=== PATIENT | female | born 1960 | race Caucasian/White ===

== ENCOUNTER 2017-07-06 06:43 | Day surgery (SDC) | payer MEDICAID ==
[~2017-07-06] VITALS: Ht 152.4 cm; Wt 63.5 kg
[2017-07-06] MEDS ORDERED: HYALURONATE SODIUM 14 MG/ML 0.85ML SYRINGE IO ONE ×2 (07:11→10:21)
[2017-07-06] MEDS ORDERED: CYCLOPENTOLATE HCL 1% OPHTH DROPS 2ML RIGHTEYE ONE (07:50)
[2017-07-06] MEDS ORDERED: PHENYLEPHRINE HCL 10% OPHTH DROPS 5ML RIGHTEYE ONE (07:50)
[2017-07-06] MEDS ORDERED: TROPICAMIDE 1% OPHTH DROPS 15ML RIGHTEYE ONE (07:50)
[2017-07-06] MEDS: LACTATED RINGERS 1,000 ML IV SCH ×2 (08:45→08:50)
[2017-07-06 11:33] LABS: BASOPHILS % 1.1 % (0.0-2.0); EOSINOPHILS % 4.8 % (0.0-5.0); HEMATOCRIT. 37.2 % (36.0-48.0); HEMOGLOBIN. 12.7 g/dL (12.0-16.0); LYMPHOCYTES % 30.4 % (20.0-50.0); MEAN CORPUSCULAR HEMOGLOBIN 30.7 pg (28.0-32.0); MEAN PLATELET VOLUME 7.7 fl (7.4-10.4); NEUTROPHILS % 54.7 % (40.0-76.0); PLATELET 271 x1000/uL (130-400); RED BLOOD CELL COUNT 4.14 mill/uL (4.2-5.4); RED CELL DISTRIBUTION WIDTH 13.9 % (11.6-14.6)
[2017-07-06] MEDS ORDERED: FENTANYL CITRATE/PF 50MCG/ML 2ML VIAL ONE (12:46)
[2017-07-06] MEDS ORDERED: MIDAZOLAM HCL 2 MG/2 ML VIAL ONE (12:46)
[2017-07-06] MEDS ORDERED: PROPOFOL 200MG/20ML VIAL IV ONE (12:46)
[2017-07-06] MEDS ORDERED: ACET-2178 PO (12:53)
[2017-07-06] MEDS ORDERED: AMLO2.5T45 PO (12:53)
[2017-07-06] MEDS ORDERED: FLUO40CA49 PO (12:53)
[2017-07-06] MEDS ORDERED: GABA-531 PO (12:53)
[2017-07-06] MEDS ORDERED: NORT25CA PO (12:53)
[2017-07-06] MEDS ORDERED: TOLT4CAP PO (12:53)
[2017-07-06] MEDS ORDERED: MELO-106 PO (12:53)
[2017-07-06] MEDS ORDERED: HYDR-3735 GT (12:53)
[2017-07-06] MEDS ORDERED: OMEP20CA10 PO (12:53)
[2017-07-06] MEDS ORDERED: LATA2.5D2 EACHEYE (12:53)
[2017-07-06] MEDS ORDERED: ALBU18HF2 IH (12:53)
[2017-07-06] MEDS ORDERED: PROP80CA2 PO (12:53)
[2017-07-06] MEDS ORDERED: PRAV40TA58 PO (12:53)
[2017-07-06] MEDS ORDERED: ESTR0.3T3 PO (12:53)
[2017-07-06] MEDS ORDERED: TIOT18CA3 IH (12:53)
[2017-07-06] MEDS ORDERED: VARE1TAB21 PO (12:53)
[2017-07-06] MEDS ORDERED: SODIUM CHLORIDE 0.9% 1,000 ML IV SCH (13:30)
[2017-07-06] MEDS ORDERED: MORPHINE SULFATE 2 MG/ML CPJ (NOT FOR IM USE) IV PRN (13:30)
[2017-07-06] MEDS ORDERED: ONDANSETRON HCL 4MG/2ML VIAL IV PRN (13:30)
[2017-07-06] MEDS ORDERED: EPINEPHRINE 1:1000 1 MG/ML AMP ONE (13:47)
[2017-07-06] MEDS ORDERED: BALANCED SALT IRRIG SOLN 15ML ONE (14:26)
[2017-07-06] MEDS ORDERED: TETRACAINE 0.5% OPHTH DROPS 4ML ONE (14:26)
[2017-07-06] MEDS ORDERED: LIDOCAINE HCL/PF 2% 20 MG/ML 10ML VIAL ONE (14:26)
[2017-07-06] MEDS ORDERED: CIPROFLOXACIN 0.3% OPHTH SOLN 2.5ML ONE (14:26)
[2017-07-06] MEDS ORDERED: PREDNISOLONE ACETATE 1% OPHTH DROPS 1ML ONE (14:26)
[2017-07-06] MEDS ORDERED: LIDOCAINE HCL 2%/EPINEPHRINE 1:100,000 20 ML VIAL INFIL ONE (14:26)
[2017-07-06] MEDS ORDERED: ACETYLCHOLINE CHLORIDE INTRAOCULAR SOLUTION 1:100 ELECTROLYTE DILUENT IO ONE (14:26)
[2017-07-06] MEDS ORDERED: BUPIVACAINE HCL/PF 0.75% (7.5MG/ML) 10ML ONE (14:26)
[2017-07-06] MEDS ORDERED: NEO/POLYMYX B SULF/DEXAMETH OPHTH OINT 3.5GM ONE (14:26)
== END 2017-07-06 15:15 | disposition home or self-care (01) ==
LOC: OR 06:43
PROVIDERS: ATTEND Ophthalmology
DX: H25.9 Unspecified age-related cataract (principal); H57.03 Miosis; J43.9 Emphysema, unspecified; K21.9 Gastro-esophageal reflux disease without esophagitis; I10 Essential (primary) hypertension; E66.3 Overweight; F17.210 Nicotine dependence, cigarettes, uncomplicated; E78.5 Hyperlipidemia, unspecified
CPT/HCPCS: 36415; 66982; 67010; 84132; 85025; J0171; J2250; J3010; J3490; J7120; V2632; J2704

== ENCOUNTER 2017-08-17 06:56 | Day surgery (SDC) | payer MEDICAID ==
[~2017-08-17] VITALS: Ht 152.4 cm; Wt 63.5 kg
[~2017-08-17 06:56] MED LIST: ACET-2178 PO; ALBU18HF2 IH; AMLO2.5T45 PO; ESTR0.3T3 PO; FLUO40CA49 PO; GABA-531 PO; HYDR-3735 GT; LATA2.5D2 EACHEYE; MELO-106 PO; NORT25CA PO; OMEP20CA10 PO; PRAV40TA58 PO; PROP80CA2 PO; TIOT18CA3 IH; TOLT4CAP PO; VARE1TAB21 PO
[2017-08-17] MEDS ORDERED: BALANCED SALT IRRIG SOLN COMB1 500ML OP ONE (07:45)
[2017-08-17] MEDS ORDERED: PHENYLEPHRINE HCL 10% OPHTH DROPS 5ML RIGHTEYE ONE (07:55)
[2017-08-17] MEDS ORDERED: TROPICAMIDE 1% OPHTH DROPS 15ML RIGHTEYE ONE (07:55)
[2017-08-17] MEDS ORDERED: CYCLOPENTOLATE HCL 1% OPHTH DROPS 2ML RIGHTEYE ONE (07:55)
[2017-08-17] MEDS ORDERED: LACTATED RINGERS 1,000 ML IV SCH (08:00)
[2017-08-17] MEDS ORDERED: HYALURONATE SODIUM 14 MG/ML 0.85ML SYRINGE IO ONE (08:40)
[2017-08-17] MEDS ORDERED: PROPOFOL 200MG/20ML VIAL IV ONE ×2 (10:30→10:55)
[2017-08-17] MEDS ORDERED: LIDOCAINE HCL 1% 20ML VIAL (Pyxis) INJ ONE (10:32)
[2017-08-17] MEDS ORDERED: ONDANSETRON HCL 4MG/2ML VIAL IV PRN (10:45)
[2017-08-17] MEDS ORDERED: MEPERIDINE HCL/PF 25MG/ML CPJ IV PRN (10:45)
[2017-08-17] MEDS ORDERED: LABETALOL HCL 20MG/4ML CARPUJECT IV PRN (10:45)
[2017-08-17] MEDS ORDERED: EPINEPHRINE 1:1000 1 MG/ML AMP ONE (11:04)
[2017-08-17] MEDS ORDERED: DEXAMETHASONE 4MG/ML 1ML VIAL ONE (11:20)
[2017-08-17] MEDS ORDERED: LIDOCAINE HCL 2%/EPINEPHRINE 1:100,000 20 ML VIAL INFIL ONE (12:16)
[2017-08-17] MEDS ORDERED: NEO/POLYMYX B SULF/DEXAMETH OPHTH OINT 3.5GM ONE (12:16)
[2017-08-17] MEDS ORDERED: TETRACAINE 0.5% OPHTH DROPS 4ML ONE (12:16)
[2017-08-17] MEDS ORDERED: ACETYLCHOLINE CHLORIDE INTRAOCULAR SOLUTION 1:100 ELECTROLYTE DILUENT IO ONE (12:16)
[2017-08-17] MEDS ORDERED: BUPIVACAINE HCL/PF 0.75% (7.5MG/ML) 10ML ONE (12:16)
[2017-08-17] MEDS ORDERED: BALANCED SALT IRRIG SOLN 15ML ONE (12:16)
[2017-08-17] MEDS ORDERED: CIPROFLOXACIN 0.3% OPHTH SOLN 2.5ML ONE (12:16)
[2017-08-17] MEDS ORDERED: LIDOCAINE HCL/PF 2% 20 MG/ML 10ML VIAL ONE (12:16)
== END 2017-08-17 12:20 ==
LOC: OR 06:56
PROVIDERS: ATTEND Ophthalmology
DX: H52.31 Anisometropia (principal); B19.20 Unspecified viral hepatitis C without hepatic coma; J43.8 Other emphysema; K21.9 Gastro-esophageal reflux disease without esophagitis; I10 Essential (primary) hypertension; E66.8 Other obesity; F41.9 Anxiety disorder, unspecified; F17.200 Nicotine dependence, unspecified, uncomplicated; Z86.2 Personal history of diseases of the blood and blood-forming organs and certain disorders involving the immune mechanism; Z79.899 Other long term (current) drug therapy; Z98.890 Other specified postprocedural states
CPT/HCPCS: 66986; J0171; J1100; J3490; J7120; V2630; J2704